=== PATIENT | male | born 1975 | race Caucasian/White ===

== ENCOUNTER 2024-09-07 18:43 | Emergency (ER) | payer BC ==
[~2024-09-07] VITALS: Ht 177.8 cm; Wt 89.8 kg
[2024-09-07] MEDS ORDERED: Ketorolac Tromethamine 15mg Vial IV ONE (20:10)
[2024-09-07] MEDS ORDERED: Prochlorperazine Edisylate 10 mg Vial IV ONE (20:15)
[2024-09-07] MEDS ORDERED: DiphenhydrAMINE HCl 50 MG/ML 1ML Vial IV ONE (20:15)
[2024-09-07] MEDS ORDERED: NS 1,000 ML IV SCH (20:30)
== END 2024-09-07 21:25 | disposition home or self-care (01) ==
LOC: ER 18:43
DX: G43.909 Migraine, unspecified, not intractable, without status migrainosus (principal)
CPT/HCPCS: 96361; 96374; 96375; 99282-25; J0780; J1200; J1885; J7030